=== PATIENT | male | born 1990 ===

== ENCOUNTER 2018-02-21 14:58 | Emergency (ER) | payer OTHER ==
[~2018-02-21] VITALS: Ht 167.6 cm; Wt 73.9 kg
[2018-02-21] MEDS ORDERED: VENLAFAXINE HCL75 M1 (15:29)
[2018-02-21] MEDS ORDERED: PROTONIX40 M1 (15:29)
[2018-02-21] MEDS ORDERED: SINGULAIR10 MG (15:29)
== END 2018-02-21 20:40 | disposition home or self-care (01) ==
LOC: ER 14:58
DX: R42 Dizziness and giddiness (principal)